=== PATIENT | female | born 1960 | race Asian ===

== ENCOUNTER 2016-12-13 14:27 | Emergency (ER) | payer OTHER ==
[~2016-12-13] VITALS: Ht 142.2 cm; Wt 53.6 kg
[2016-12-13 14:41] LABS: GLUCOSE,POINT OF CARE 57 MG/DL (70-110)
[2016-12-13] MEDS ORDERED: ATEN50TA PO (14:44)
[2016-12-13] MEDS ORDERED: ASPI81 PO (14:44)
[2016-12-13] MEDS ORDERED: LOSA50TA37 PO (14:44)
[2016-12-13] MEDS ORDERED: AMLO-511 PO (14:44)
[2016-12-13] MEDS ORDERED: METF500T4 PO (14:44)
[2016-12-13] MEDS ORDERED: ATOR40TA28 PO (14:44)
[2016-12-13 15:17] LABS: BASOPHILS % (AUTO) 0.4 % (0.0-2.0); EOSINOPHILS % (AUTO) 1.9 % (1.0-6.0); HEMATOCRIT 39.8 % (36-46); HEMOGLOBIN 12.7 g/dL (12.0-16.0); LYMPHOCYTES # (AUTO) 1.3 K/uL (1.0-4.8); LYMPHOCYTES % (AUTO) 11.6 % (22.0-44.0); MEAN CORPUSCULAR HEMOGLOBIN 27.2 pg (26.0-34.0); MEAN CORPUSCULAR HGB CONC 31.8 G/dL (31.0-37.0); MEAN CORPUSCULAR VOLUME 85 fL (80-100); MONOCYTES # (AUTO) 0.7 K/uL (0.1-1.0); MONOCYTES % (AUTO) 6.2 % (2.0-9.0); NEUTROPHILS # (AUTO) 9.3 K/uL (1.8-7.7); NEUTROPHILS % (AUTO) 79.9 % (40.0-70.0); PLATELET COUNT (AUTO) 298 K/uL (150-450); RED BLOOD CELL COUNT(AUTO) 4.66 MIL/uL (4.00-5.20); RED CELL DISTRIBUTION WIDTH 14.9 % (11.5-14.5); WHITE BLOOD COUNT (AUTO) 11.6 K/uL (4.5-11.0)
[2016-12-13 15:26] LABS: ANION GAP 10 mmol/L (8-16); CALCIUM, TOTAL 9.7 mg/dL (8.8-10.5); CARBON DIOXIDE 30 mmol/L (22-29); CHLORIDE 104 mmol/L (98-107); CREATININE 0.87 mg/dL (0.60-1.30); GLOMERULAR FILTR. RATE CALC > 60 mL/min (>60); POTASSIUM 4.3 mmol/L (3.5-5.1); SODIUM SERUM 144 mmol/L (136-145); UREA NITROGEN, BLOOD 18 mg/dL (7-18)
[2016-12-13 15:31] LABS: ALANINE AMINOTRANSFERASE 52 U/L (12-78); ASPARTATE AMINOTRANSFERASE 36 U/L (15-37); BILIRUBIN,TOTAL 0.3 mg/dL (0.1-1.0); TOTAL PROTEIN, SERUM 8.4 g/dL (6.4-8.2)
[2016-12-13 16:19] LABS: APPEARANCE,URINE CLEAR (CLEAR); GLUCOSE, URINE (UA) NEGATIVE (NEGATIVE); KETONES,URINE NEGATIVE (NEGATIVE); LEUKOCYTE ESTERASE ,URINE TRACE (NEGATIVE); OCCULT BLOOD,URINE SMALL (NEGATIVE); PH,URINE 6.5 (5.0-8.0); PROTEIN,URINE NEGATIVE (NEGATIVE)
[2016-12-13 16:24] LABS: ADD UA MICROSCOPIC YES
[2016-12-13 16:26] LABS: SQUAMOUS EPITHELIAL CELL,UR Few /LPF (None Seen)
[2016-12-13] MEDS ORDERED: CIPROFLOXACIN HCL 250 MG TABLET PO ONE (17:00)
[2016-12-13] MEDS ORDERED: MetroNIDAZOLE 250 MG TABLET PO ONE (17:00)
[2016-12-13] MEDS ORDERED: TraMADol HCL 50 MG TABLET PO ONE (17:00)
[2016-12-13 17:38] VITALS: BP 169/91
== END 2016-12-13 17:39 | disposition home or self-care (01) ==
LOC: EMS 14:36
DX: K57.92 Diverticulitis of intestine, part unspecified, without perforation or abscess without bleeding (principal); N39.0 Urinary tract infection, site not specified; E11.9 Type 2 diabetes mellitus without complications; I10 Essential (primary) hypertension; E78.00 Pure hypercholesterolemia, unspecified; Z88.5 Allergy status to narcotic agent; Z88.6 Allergy status to analgesic agent; Z79.82 Long term (current) use of aspirin
CPT/HCPCS: 82962; 87086; 93005; 99285

== ENCOUNTER 2017-05-12 06:07 | Emergency (ER) | payer OTHER ==
[~2017-05-12] VITALS: Ht 142.2 cm; Wt 57.0 kg
[~2017-05-12 06:07] MED LIST: AMLO-511 PO; ASPI81 PO; ATEN50TA PO; ATOR40TA28 PO; LOSA50TA37 PO; METF500T4 PO
[2017-05-12 06:43] LABS: GLUCOSE,POINT OF CARE 158 MG/DL (70-110)
[2017-05-12 06:51] LABS: BASOPHILS # (AUTO) 0.02 K/uL (0.00-0.20); BASOPHILS % (AUTO) 0.2 % (0.0-2.0); EOSINOPHILS # (AUTO) 0.19 K/uL (0.00-0.70); EOSINOPHILS % (AUTO) 1.75 % (1.0-6.0); HEMATOCRIT 35.5 % (36-46); HEMOGLOBIN 11.8 g/dL (12.0-16.0); LYMPHOCYTES # (AUTO) 1.4 K/uL (1.0-4.8); MEAN CORPUSCULAR HGB CONC 33.3 G/dL (31.0-37.0); MEAN CORPUSCULAR VOLUME 84 fL (80-100); MONOCYTES # (AUTO) 0.5 K/uL (0.1-1.0); MONOCYTES % (AUTO) 4.8 % (2.0-9.0); NEUTROPHILS # (AUTO) 8.5 K/uL (1.8-7.7); NEUTROPHILS % (AUTO) 80.3 % (40.0-70.0); PLATELET COUNT (AUTO) 280 K/uL (150-450); RED BLOOD CELL COUNT(AUTO) 4.22 MIL/uL (4.00-5.20); RED CELL DISTRIBUTION WIDTH 14.3 % (11.5-14.5); WHITE BLOOD COUNT (AUTO) 10.6 K/uL (4.5-11.0)
[2017-05-12 06:56] LABS: CALCIUM, TOTAL 9.2 mg/dL (8.8-10.5); CREATININE 1.07 mg/dL (0.60-1.30); POTASSIUM 3.7 mmol/L (3.5-5.1)
[2017-05-12 07:02] LABS: ALBUMIN 3.5 g/dL (3.4-5.0); BILIRUBIN,TOTAL 0.2 mg/dL (0.1-1.0); TOTAL PROTEIN, SERUM 7.9 g/dL (6.4-8.2)
[2017-05-12 07:53] LABS: APPEARANCE,URINE CLEAR (CLEAR); GLUCOSE, URINE (UA) NEGATIVE (NEGATIVE); KETONES,URINE NEGATIVE (NEGATIVE); LEUKOCYTE ESTERASE ,URINE NEGATIVE (NEGATIVE); OCCULT BLOOD,URINE NEGATIVE (NEGATIVE); PH,URINE 5.5 (5.0-8.0); PROTEIN,URINE NEGATIVE (NEGATIVE)
[2017-05-12 07:54] LABS: ADD UA MICROSCOPIC NO
[2017-05-12 09:07] LABS: GLUCOSE,POINT OF CARE 92 MG/DL (70-110)
[2017-05-12] MEDS ORDERED: IBUPROFEN 600 MG TABLET PO ONE (09:45)
[2017-05-12] MEDS ORDERED: ONDANSETRON HCL 4 MG/2 ML VIAL IVP ONE (12:00)
[2017-05-12 12:33] VITALS: BP 144/81
== END 2017-05-12 13:17 | disposition home or self-care (01) ==
LOC: EMS 06:08
DX: R10.9 Unspecified abdominal pain (principal); I10 Essential (primary) hypertension; E78.00 Pure hypercholesterolemia, unspecified; E11.9 Type 2 diabetes mellitus without complications; Z88.5 Allergy status to narcotic agent; Z88.6 Allergy status to analgesic agent
CPT/HCPCS: 74022; 82962; 99285; J2405

== ENCOUNTER 2021-08-13 12:10 | Emergency (ER) | payer OTHER ==
[~2021-08-13] VITALS: Ht 142.2 cm; Wt 50.9 kg
[~2021-08-13 12:10] MED LIST changes: +AMLO-258 PO; -AMLO-511 PO; +ASPI-1450 PO; -ASPI81 PO; -ATEN50TA PO; -ATOR40TA28 PO; +ATOR40TA71 PO; +CARV6 PO; +CHOL-35 PO; +FURO40 PO; -LOSA50TA37 PO; -METF500T4 PO; +OMEP20 PO; +PRED10 PO; +SITA25 PO
[2021-08-13 12:24] VITALS: BP 126/64
[2021-08-13] MEDS ORDERED: FLUORESCEIN SODIUM 1 MG STRIP OD ONE (13:00)
[2021-08-13] MEDS ORDERED: PROPARACAINE HCL 0.5% 15 ML OPHTHALMIC SOLUTION OD ONE (13:00)
[2021-08-13] MEDS ORDERED: IBUPROFEN 600 MG TABLET PO ONE (13:00)
[2021-08-13] MEDS ORDERED: ACYCLOVIR 200 MG CAPSULE PO ONE (13:45)
== END 2021-08-13 15:41 | disposition home or self-care (01) ==
LOC: EMS 12:45
DX: B02.30 Zoster ocular disease, unspecified (principal); I10 Essential (primary) hypertension; E11.9 Type 2 diabetes mellitus without complications; E78.00 Pure hypercholesterolemia, unspecified; Z88.8 Allergy status to other drugs, medicaments and biological substances; Z88.5 Allergy status to narcotic agent; Z91.040 Latex allergy status; Z79.82 Long term (current) use of aspirin; Z79.899 Other long term (current) drug therapy
CPT/HCPCS: 99284; Z7502; Z7610

== ENCOUNTER 2022-08-19 21:10 | Emergency (ER) | payer OTHER ==
[~2022-08-19] VITALS: Ht 142.2 cm; Wt 53.0 kg
[~2022-08-19 21:10] MED LIST changes: -CHOL-35 PO; +CHOL25TA4 PO; +PRED-729 PO; -PRED10 PO
[2022-08-19 21:36] LABS: GLUCOMETER DEV NAME(LOC) ERT.5; GLUCOSE,POINT OF CARE 91 MG/DL (70-110)
[2022-08-19 22:41] LABS: BASOPHILS % (AUTO) 0.5 % (0.0-2.0); EOSINOPHILS % (AUTO) 2.3 % (1.0-6.0); HEMATOCRIT 35.7 % (36-46); HEMOGLOBIN 11.4 g/dL (12.0-16.0); LYMPHOCYTES # (AUTO) 1.4 K/uL (1.0-4.8); LYMPHOCYTES % (AUTO) 18.1 % (22.0-44.0); MEAN CORPUSCULAR HEMOGLOBIN 28.8 pg (26.0-34.0); MEAN CORPUSCULAR VOLUME 90 fL (80-100); MONOCYTES # (AUTO) 0.8 K/uL (0.1-1.0); NEUTROPHILS # (AUTO) 5.3 K/uL (1.8-7.7); NEUTROPHILS % (AUTO) 69.1 % (40.0-70.0); PLATELET COUNT (AUTO) 217 K/uL (150-450); RED BLOOD CELL COUNT(AUTO) 3.97 MIL/uL (4.00-5.20); RED CELL DISTRIBUTION WIDTH 16.3 % (11.5-14.5)
[2022-08-19 22:57] LABS: CALCIUM, TOTAL 9.4 mg/dL (8.8-10.5); CREATININE 7.92 mg/dL (0.60-1.30); POTASSIUM 3.8 mmol/L (3.5-5.1)
[2022-08-19 23:03] LABS: ALBUMIN 3.4 g/dL (3.4-5.0); BILIRUBIN,TOTAL 0.3 mg/dL (0.1-1.0); TOTAL PROTEIN, SERUM 7.2 g/dL (6.4-8.2)
[2022-08-19] MEDS ORDERED: LIDOCAINE 5% TRANSDERMAL PATCH TD ONE (23:30)
[2022-08-19] MEDS ORDERED: FURO40 PO (23:38)
[2022-08-19] MEDS ORDERED: OMEP20 PO (23:38)
[2022-08-19] MEDS ORDERED: ATOR40TA28 PO (23:38)
[2022-08-19] MEDS ORDERED: LOSA-382 PO (23:38)
[2022-08-19] MEDS ORDERED: CARV25 PO (23:38)
[2022-08-19] MEDS ORDERED: LIDO700A15 TP (23:58)
[2022-08-20 00:26] VITALS: BP 154/64
== END 2022-08-20 00:57 | disposition home or self-care (01) ==
LOC: EMS 21:21
DX: M54.50 Low back pain, unspecified (principal); E11.22 Type 2 diabetes mellitus with diabetic chronic kidney disease; I12.0 Hypertensive chronic kidney disease with stage 5 chronic kidney disease or end stage renal disease; N18.6 End stage renal disease; Z91.040 Latex allergy status; Z88.5 Allergy status to narcotic agent; Z88.6 Allergy status to analgesic agent; E78.00 Pure hypercholesterolemia, unspecified; Z90.49 Acquired absence of other specified parts of digestive tract; Z98.890 Other specified postprocedural states; Z99.2 Dependence on renal dialysis; Z88.8 Allergy status to other drugs, medicaments and biological substances
CPT/HCPCS: 80053; 82962; 85025; 93005; 99284

== ENCOUNTER 2025-01-14 09:36 | Emergency (ER) | payer MEDICARE, OTHER ==
[~2025-01-14] VITALS: Ht 147.3 cm; Wt 59.1 kg
[~2025-01-14 09:36] MED LIST changes: -AMLO-258 PO; -ASPI-1450 PO; +ATOR40TA28 PO; -ATOR40TA71 PO; +CARV25 PO; -CARV6 PO; -FURO40 PO; +FURO40TA6 PO; +LIDO700A15 TP; +LOSA-382 PO; +OMEP-148 PO; -OMEP20 PO; -PRED-729 PO; -SITA25 PO
[2025-01-14 09:40] VITALS: TEMP 97.7
[2025-01-14] MEDS ORDERED: TACR1CAP12 PO (09:45)
[2025-01-14 09:58] LABS: APPEARANCE,URINE CLEAR (CLEAR); BILIRUBIN,URINE NEGATIVE (NEGATIVE); COLOR,URINE LIGHT YELLOW (YELLOW); GLUCOSE, URINE (UA) NEGATIVE (NEGATIVE); KETONES,URINE NEGATIVE (NEGATIVE); LEUKOCYTE ESTERASE ,URINE SMALL (NEGATIVE); NITRATE,URINE NEGATIVE (NEGATIVE); OCCULT BLOOD,URINE NEGATIVE (NEGATIVE); PH,URINE 5.5 (5.0-8.0); PROTEIN,URINE NEGATIVE (NEGATIVE); SPECIFIC GRAVITIY, URINE 1.011 (1.003-1.030); UROBILINOGEN,URINE <=1.0 mg/dL (<=1.0)
[2025-01-14 10:03] LABS: BACTERIA,URINE None Seen /HPF (None Seen); RBC,URINE None Seen /HPF (0-2)
[2025-01-14] MEDS: PHENAZOPYRIDINE HCL 100 MG TABLET PO ONE (10:25)
[2025-01-14] MEDS: CEPHALEXIN MONOHYDRATE 500 MG CAPSULE PO ONE (10:25)
[2025-01-14 11:00] VITALS: BP 124/56; PULSE 69; RESP 17; O2SAT 98
[2025-01-14] MEDS ORDERED: CEPH-558 PO (11:31)
[2025-01-14] MEDS ORDERED: PHEN-846 PO (11:31)
== END 2025-01-14 12:03 | disposition home or self-care (01) ==
LOC: EMS 09:39
DX: N39.0 Urinary tract infection, site not specified (principal); E11.9 Type 2 diabetes mellitus without complications; I10 Essential (primary) hypertension; E78.00 Pure hypercholesterolemia, unspecified; Z88.5 Allergy status to narcotic agent; Z90.49 Acquired absence of other specified parts of digestive tract; Z79.899 Other long term (current) drug therapy
CPT/HCPCS: 81001; 99283

== ENCOUNTER → 2025-02-18 | Emergency (ER) | payer MEDICARE, OTHER ==
[~2025-02-18] VITALS: Ht 152.4 cm; Wt 50.0 kg
[~2025-02-18] MED LIST changes: +CEPH-558 PO; +LIDO-57 TP; -LIDO700A15 TP; +PHEN-846 PO; +TACR1CAP12 PO
[2025-02-18 15:04] VITALS: TEMP 98.5
[2025-02-18 15:28] LABS: COVID AG,FIA SOURCE NASAL SWAB
[2025-02-18 15:30] LABS: BASOPHILS % (AUTO) 0.2 % (0.0-2.0); EOSINOPHILS % (AUTO) 0.2 % (1.0-6.0); HEMATOCRIT 26.2 % (36-46); HEMOGLOBIN 8.2 g/dL (12.0-16.0); LYMPHOCYTES # (AUTO) 0.5 K/uL (1.0-4.8); LYMPHOCYTES % (AUTO) 4.3 % (22.0-44.0); MEAN CORPUSCULAR HEMOGLOBIN 28.3 pg (26.0-34.0); MEAN CORPUSCULAR HGB CONC 31.4 G/dL (31.0-37.0); MEAN CORPUSCULAR VOLUME 90 fL (80-100); MONOCYTES # (AUTO) 1.6 K/uL (0.1-1.0); MONOCYTES % (AUTO) 15.4 % (2.0-9.0); NEUTROPHILS # (AUTO) 8.4 K/uL (1.8-7.7); NEUTROPHILS % (AUTO) 79.9 % (40.0-70.0); PLATELET COUNT (AUTO) 233 K/uL (150-450); RED BLOOD CELL COUNT(AUTO) 2.91 MIL/uL (4.00-5.20); WHITE BLOOD COUNT (AUTO) 10.5 K/uL (4.5-11.0)
[2025-02-18 15:36] LABS: APPEARANCE,URINE HAZY (CLEAR); COLOR,URINE YELLOW (YELLOW); GLUCOSE, URINE (UA) TRACE mg/dL (NEGATIVE); KETONES,URINE NEGATIVE (NEGATIVE); LEUKOCYTE ESTERASE ,URINE LARGE (NEGATIVE); NITRATE,URINE POSITIVE (NEGATIVE); OCCULT BLOOD,URINE TRACE (NEGATIVE); PROTEIN,URINE 30-70 mg/dL (NEGATIVE); SPECIFIC GRAVITIY, URINE 1.019 (1.003-1.030)
[2025-02-18 15:38] LABS: ANION GAP 8 mmol/L (8-16); CALCIUM, TOTAL 8.9 mg/dL (8.8-10.5); CARBON DIOXIDE 26 mmol/L (22-29); CHLORIDE 101 mmol/L (98-107); CREATININE 1.14 mg/dL (0.60-1.30); GLOMERULAR FILTR. RATE CALC 48 mL/min (>60); GLUCOSE,RANDOM 212 mg/dL (70-110); POTASSIUM 4.3 mmol/L (3.5-5.1); SODIUM SERUM 135 mmol/L (136-145); UREA NITROGEN, BLOOD 19 mg/dL (7-18)
[2025-02-18 15:48] LABS: TROPONIN I-HIGH SENSITIVITY 12 ng/L (<51)
[2025-02-18 15:55] LABS: BILIRUBIN,URINE SMALL (NEGATIVE)
[2025-02-18 15:57] LABS: INFLUENZA TYPE A NEGATIVE FOR TYPE A (NEGATIVE); INFLUENZA TYPE B NEGATIVE FOR TYPE B (NEGATIVE); SARS-COV2 (COVID) ANTIGEN,FIA Negative (Negative)
[2025-02-18 16:08] LABS: RBC,URINE 0-2 /HPF (0-2); WBC,URINE 26-50 /HPF (0-5)
[2025-02-18 16:09] LABS: BACTERIA,URINE Moderate /HPF (None Seen)
[2025-02-18 16:11] LABS: RBC MORPHOLOGY COMMENT ABNORMAL RBC MORPH
[2025-02-18] MEDS: ONDANSETRON HCL 4 MG/2 ML VIAL IVP ONE (17:27)
[2025-02-18] MEDS: CefTRIAXone 1 GM/DEXTROSE 50 ML IV ONE (17:27)
[2025-02-18] MEDS: KETOROLAC TROMETHAMINE 30 MG/ML VIAL IVP ONE (17:27)
[2025-02-18] MEDS: SODIUM CHLORIDE 0.9% 1,000 ML IV ONE (17:27)
[2025-02-18 19:15] VITALS: BP 98/52; PULSE 74; RESP 18; O2SAT 86
== END | disposition short-term general hospital (02) ==
LOC: EMS 14:58
DX: N12 Tubulo-interstitial nephritis, not specified as acute or chronic (principal); T86.13 Kidney transplant infection; E11.65 Type 2 diabetes mellitus with hyperglycemia; I10 Essential (primary) hypertension; E78.00 Pure hypercholesterolemia, unspecified; Z88.5 Allergy status to narcotic agent; Z90.49 Acquired absence of other specified parts of digestive tract; Z99.2 Dependence on renal dialysis; Z79.899 Other long term (current) drug therapy; Z20.822 Contact with and (suspected) exposure to COVID-19; Y83.0 Surgical operation with transplant of whole organ as the cause of abnormal reaction of the patient, or of later complication, without mention of misadventure at the time of the procedure
CPT/HCPCS: 99291; 96365; 96375; 87426; 80048; 81001; 83690; 84484; 85025; 87077; 87086; 87186; 87804; 36415; J1885; J0696; J2405; J7030